=== PATIENT | female | born 1965 | race Hispanic/Latino ===

== ENCOUNTER 2017-08-29 16:54 | Observation (INO) | payer OTHER ==
[~2017-08-29] VITALS: Ht 152.4 cm; Wt 43.3 kg
[2017-08-29 17:37] LABS: BASOPHIL (%) 0.5 % (0-1); BASOPHIL COUNT 0.1 K/uL (0-0.1); EOSINOPHIL (%) 1.2 % (0-5); EOSINOPHIL COUNT 0.2 K/uL (0-0.3); HEMATOCRIT 39.5 % (36.0-46.0); IMMATURE GRANULOCYTE (%) 0.4 % (0.0-0.7); LYMPHOCYTE (%) 32.3 % (15-42); LYMPHOCYTE COUNT 5.3 K/uL (1.0-2.8); MCH 29.7 PG (29.0-34.0); MCHC 32.9 G/DL (30.0-36.0); MCV 90.4 FL (83-99); MONOCYTE (%) 8.5 % (3-12); MONOCYTE COUNT 1.4 K/uL (0-0.8); NEUTROPHIL (%) 57.1 % (45-76); NEUTROPHIL COUNT 9.4 K/uL (1.8-6.4); PLATELET COUNT 382 K/uL (156-360); RBC DIS.WIDTH-CV 14.6 % (11.8-14.6); RBC DIS.WIDTH-SD 48.8 % (39-53); RED BLOOD COUNT 4.37 M/uL (3.80-5.20); WHITE BLOOD COUNT 16.5 K/uL (4.1-10.2)
[2017-08-29 17:51] LABS: ALBUMIN 4.6 g/dL (3.2-4.8); CHLORIDE 108 mEq/L (99-109); POTASSIUM 3.9 mEq/L (3.7-5.4); SODIUM 141 mEq/L (136-147)
[2017-08-29 17:52] LABS: MAGNESIUM 2.3 mg/dL (1.3-2.7)
[2017-08-29 17:54] LABS: GLUCOSE 84 mg/dL (70-99); TOTAL PROTEIN 7.6 g/dL (6.4-8.3)
[2017-08-29 17:56] LABS: TOTAL BILIRUBIN 0.3 mg/dL (0.0-1.0)
[2017-08-29 17:57] LABS: ALKALINE PHOSPHATASE 75 IU/L (3-129)
[2017-08-29 17:58] LABS: CREATININE 0.9 mg/dL (0.6-1.3); GFR ESTIMATE (CALCULATED) > 59 mL/min/
[2017-08-29 17:59] LABS: AST (GOT) 19 IU/L (2-34); UREA NITROGEN (BUN) 14 mg/dL (9-23)
[2017-08-29 18:01] LABS: ALT (GPT) 13 IU/L (3-49)
[2017-08-29 18:04] LABS: TROP-I INTERPRETATION NEGATIVE; TROPONIN-I < 0.01 ng/mL (0.0-0.30)
[2017-08-29] MEDS ORDERED: ADVIL,NUPRIN,M200 MG PO (19:40)
[2017-08-29] MEDS ORDERED: TYLENOL EXTRA500 MG PO (19:42)
[2017-08-29] MEDS ORDERED: STAY AWAKE200 MG PO (19:43)
[2017-08-29 22:01] VITALS: BP 124/60
[2017-08-30 00:54] LABS: TROP-I INTERPRETATION NEGATIVE; TROPONIN-I < 0.01 ng/mL (0.0-0.30)
[2017-08-30 03:25] VITALS: BP 114/57
[2017-08-30 05:17] LABS: HEMATOCRIT 32.7 % (36.0-46.0); MCH 29.4 PG (29.0-34.0); MCHC 32.4 G/DL (30.0-36.0); MCV 90.8 FL (83-99); PLATELET COUNT 290 K/uL (156-360); RBC DIS.WIDTH-CV 14.8 % (11.8-14.6); RBC DIS.WIDTH-SD 49.6 % (39-53); WHITE BLOOD COUNT 14.6 K/uL (4.1-10.2)
[2017-08-30 05:23] LABS: HEMOGLOBIN 10.6 G/DL (11.9-15.5)
[2017-08-30 05:33] LABS: TROP-I INTERPRETATION NEGATIVE; TROPONIN-I < 0.01 ng/mL (0.0-0.30)
[2017-08-30 05:55] LABS: ALBUMIN 3.6 G/DL (3.2-4.8); ALKALINE PHOSPHATASE 54 IU/L (3-129); ALT (GPT) 10 IU/L (3-49); AST (GOT) 14 IU/L (2-34); CHLORIDE 114 MEQ/L (99-109); HDL CHOLESTEROL 37 MG/DL (Desirable>=50); LDL CHOLESTEROL 84 mg/dL (Desirable<100); NON-HDL CHOLESTEROL 118 mg/dL (Desirable<160); POTASSIUM 4.1 MEQ/L (3.7-5.4); SODIUM 143 MEQ/L (136-147); TOTAL BILIRUBIN 0.2 MG/DL (0.0-1.0); TOTAL CHOLESTEROL 155 mg/dL (Desirable<200); TOTAL PROTEIN 5.4 G/DL (6.4-8.3); TRIGLYCERIDES 169 MG/DL (Normal: <150); UREA NITROGEN (BUN) 12 mg/dL (9-23)
[2017-08-30 06:14] LABS: GLUCOSE 117 mg/dL (70-99)
[2017-08-30 06:47] LABS: CREATININE 0.7 MG/DL (0.6-1.3); GFR ESTIMATE (CALCULATED) > 59 mL/min/
[2017-08-30 07:49] VITALS: BP 117/61
[2017-08-30 10:29] LABS: HEMATOCRIT 34.2 % (36.0-46.0); MCHC 32.2 G/DL (30.0-36.0); MCV 90.2 FL (83-99); PLATELET COUNT 290 K/uL (156-360); RBC DIS.WIDTH-CV 14.8 % (11.8-14.6); RBC DIS.WIDTH-SD 49.2 % (39-53); RED BLOOD COUNT 3.79 M/uL (3.80-5.20); WHITE BLOOD COUNT 12.3 K/uL (4.1-10.2)
[2017-08-30 12:13] VITALS: BP 122/66
[2017-08-30] MEDS ORDERED: ANTIVERT25 MG PO (13:32)
== END 2017-08-30 15:02 | disposition home or self-care (01) ==
LOC: EME 16:54 → 4SOUTH 19:57 → EDOF 19:57 → ENRESERV 19:58 → 4SOUTH 21:50
PROVIDERS: Emergency Medicine; Physician Assistant; Physician Assistant Medical
DX: R07.9 Chest pain, unspecified (principal); R42 Dizziness and giddiness; H55.00 Unspecified nystagmus; D72.829 Elevated white blood cell count, unspecified; E86.0 Dehydration; J43.9 Emphysema, unspecified; F17.200 Nicotine dependence, unspecified, uncomplicated; M79.602 Pain in left arm; Z82.49 Family history of ischemic heart disease and other diseases of the circulatory system; R91.8 Other nonspecific abnormal finding of lung field; G43.909 Migraine, unspecified, not intractable, without status migrainosus
CPT/HCPCS: 70450; 70551; 71045; 71275; 80053; 80061; 81003; 83735; 84484; 85025; 85027; 87040; 93005; 99281; 99285; G0378; J1644; J7030; J7040